=== PATIENT | female | born 1985 | race African-American/Black ===

== ENCOUNTER 2023-04-03 12:37 | Emergency (ER) | payer MEDICAID ==
[~2023-04-03] VITALS: Ht 172.7 cm; Wt 96.0 kg
[2023-04-03 12:39] VITALS: O2SAT 99
[2023-04-03 13:58] LABS: BASOPHILS % 0.4 % (0.0-2.0); HEMATOCRIT. 38.2 % (36.0-48.0); HEMOGLOBIN. 12.9 g/dL (12.0-16.0); LYMPHOCYTES % 9.4 % (20.0-50.0); MEAN CORPUSCULAR HEMOGLOBIN 29.5 pg (28.0-32.0); MEAN CORPUSCULAR HGB CONC 33.7 g/dL (31.0-37.0); MEAN CORPUSCULAR VOLUME 87.5 fL (81.0-99.0); MEAN PLATELET VOLUME 8.9 fl (7.4-10.4); MONOCYTES % 5.4 % (2.0-8.0); NEUTROPHILS % 84.8 % (40.0-76.0); PLATELET 271 x1000/uL (130-400); RED BLOOD CELL COUNT 4.37 mill/uL (4.2-5.4); RED CELL DISTRIBUTION WIDTH 16.2 % (11.6-14.6); WHITE BLOOD COUNT 11.2 x1000/uL (4.5-11.0)
[2023-04-03 14:13] LABS: INDEX HEMOLYSI 1 (1-3); INDEX ICTERIC 1 (1-4); INDEX LIPEMIC 1 (1-3)
[2023-04-03 14:20] LABS: ACETAMINOPHEN <2 ug/mL ug/mL (10-30); ETHANOL BLOOD < 10 mg/dL (-10)
[2023-04-03 14:46] LABS: ALANINE AMINOTRANSFERASE 27 IU/L (13-61); ALBUMIN 4.2 g/dL (3.4-5.0); ASPARTATE AMINOTRANSFERASE 23 IU/L (15-37); BILIRUBIN TOTAL 0.8 mg/dL (0.1-1.0); CALCIUM 9.3 mg/dL (8.5-10.1); CARBON DIOXIDE 22 mEq/L (21-32); CHLORIDE 106 mEq/L (98-107); CREATININE 0.8 mg/dL (0.6-1.3); GLUCOSE 99 mg/dL (70-105); HCG SCREEN NEGATIVE; POTASSIUM 3.6 mEq/L (3.5-5.1); PROTEIN TOTAL 8.2 g/dL (6.0-8.3); SODIUM 136 mEq/L (136-145); UREA NITROGEN BLOOD 12 mg/dL (7-21)
[2023-04-03 15:57] LABS: CLARITY URINE TURBID (CLEAR); COLOR URINE RED (YELLOW); GLUCOSE URINE NEGATIVE (NEGATIVE); KETONES URINE 3+ (NEGATIVE); LEUKOCYTE ESTERASE URINE 2+ (NEGATIVE); NITRITE URINE POSITIVE (NEGATIVE); OCCULT BLOOD URINE 3+ (NEGATIVE); PROTEIN URINE 4+ (NEGATIVE); SPECIFIC GRAVITY URINE 1.032 (1.005-1.030)
[2023-04-03 16:00] LABS: YEAST URINE NONE SEEN
[2023-04-03] MEDS ORDERED: OLANZAPINE 10 MG/VIAL IM ONE (16:15)
[2023-04-03 16:27] LABS: BACTERIA URINE 4+
[2023-04-03 16:28] LABS: RBC URINE TNTC /hpf (0-2); SQUAMOUS EPITHELIAL CELL URINE 1+ /lpf (RARE/1+)
[2023-04-03 16:29] LABS: *BARBITURATES SCREEN URINE NEGATIVE (NEGATIVE); *BENZODIAZEPINES SCREEN URINE NEGATIVE (NEGATIVE); *COCAINE SCREEN URINE NEGATIVE (NEGATIVE); METHADONE URINE SCREEN NEGATIVE (NEGATIVE); OPIATES URINE SCREEN NEGATIVE (NEGATIVE); PHENCYCLIDINE URINE SCREEN NEGATIVE (NEGATIVE)
[2023-04-03 16:42] LABS: *AMPHETAMINES SCREEN URINE PRESUMTIVE POSITIVE (NEGATIVE); CANNABINOID URINE SCREEN PRESUMTIVE POSITIVE (NEGATIVE); ECSTASY MDMA SCREEN URINE CONF.TEST INDICATED (NEGATIVE)
[2023-04-03] MEDS: CEPHALEXIN 250MG CAPSULE PO SCH (21:00)
[2023-04-04] MEDS: CEPHALEXIN 250MG CAPSULE PO SCH ×4 (09:00→21:25)
[2023-04-04] MEDS: QUETIAPINE FUMARATE 50MG TABLET PO SCH ×2 (09:00→21:25)
[2023-04-04] MEDS ORDERED: IBUPROFEN 600MG TABLET PO ONE (21:30)
[2023-04-04] MEDS ORDERED: SODIUM CHLORIDE 0.9% 500 ML IV ONE (22:15)
[2023-04-05] MEDS: QUETIAPINE FUMARATE 50MG TABLET PO SCH ×2 (09:28→21:00)
[2023-04-05] MEDS: CEPHALEXIN 250MG CAPSULE PO SCH ×4 (09:28→17:27)
[2023-04-06] MEDS: QUETIAPINE FUMARATE 50MG TABLET PO SCH (09:00)
[2023-04-06] MEDS: CEPHALEXIN 250MG CAPSULE PO SCH (09:00)
[2023-04-06 09:48] VITALS: BP 149/97; PULSE 100; RESP 16; TEMP 98.3
== END 2023-04-06 10:29 | disposition home or self-care (01) ==
LOC: ER 12:51
DX: R44.3 Hallucinations, unspecified (principal); N30.00 Acute cystitis without hematuria; F15.10 Other stimulant abuse, uncomplicated; Z20.822 Contact with and (suspected) exposure to COVID-19
CPT/HCPCS: 80053; 80305; 81003; 80307; 80329; 80320; 84703; 85025; 36415; 96372; 99285; 87426; J3490; C9803; Z7610 ×2; J7040; G0480